=== PATIENT | female | born 1940 | race Caucasian/White ===

== ENCOUNTER 2017-01-06 11:43 | Inpatient (IN) | payer OTHER ==
[~2017-01-06] VITALS: Ht 162.6 cm; Wt 74.8 kg
[2017-01-06] MEDS ORDERED: IPRATROPIUM BROM 0.5 MG/2.5ML INH SOL ONE (12:03)
[2017-01-06] MEDS ORDERED: ALBUTEROL SULF 2.5 MG/0.5ML(0.5%) NEB SOLN ONE (12:03)
[2017-01-06] MEDS ORDERED: EPINEPHrine HCL 0.5 ML NEB ONE (12:03)
[2017-01-06] MEDS ORDERED: SODIUM CHLORIDE 0.9% 1,000 ML IV ONE (12:05)
[2017-01-06] MEDS ORDERED: EPINEPHrine HCL 0.5 ML NEB NEB ONE (12:15)
[2017-01-06] MEDS ORDERED: methylPREDNISolone SOD SUCC 125 MG/2 ML VL IV ONE (12:15)
[2017-01-06 13:26] LABS: Basophils # (auto) 0 uL; Basophils % (auto) 0.4 % (0.0-2.0); Eosinophils # (auto) 0.1 uL; Eosinophils % (auto) 0.9 % (0.0-7.0); Hematocrit 38.8 % (36.0-46.0); Hemoglobin 12.9 g/dL (12.2-16.2); Lymphocytes # (auto) 2.2 uL; Lymphocytes % (auto) 22.3 % (10.0-50.0); Mean Corpuscular Hemoglobin 30.2 pg (28.0-32.0); Mean Corpuscular Hgb Conc. 33.2 g/dL (32.0-36.0); Mean Corpuscular Volume 90.8 fL (80.0-100.0); Mean Platelet Volume 9.7 fL (7.4-10.4); Monocytes # (auto) 0.6 uL; Monocytes % (auto) 6.2 % (0.0-12.0); Neutrophils # (auto) 6.8 uL; Neutrophils % (auto) 70.2 % (37.0-80.0); Platelet Count (auto) 285 10^3/uL (140-450); White Blood Cell 9.8 10^3/uL (4.4-10.8)
[2017-01-06 13:51] LABS: Albumin 3.5 g/dL (3.4-5.0); Alkaline Phosphatase 101 U/L (45-117); Anion Gap 11 (5-15); Aspartate Aminotransferase 18 U/L (15-37); BUN/Creatinine Ratio 17.9; Bilirubin, Total 0.7 mg/dL (0.2-1.0); Blood Urea Nitrogen 19 mg/dL (7-18); Calcium 7.9 mg/dL (8.5-10.1); Carbon Dioxide 26 mmol/L (21-32); Chloride 103 mmol/L (98-107); GFR African American 65 mL/min; GFR Non-African American 53 mL/min; Glucose 152 mg/dL (74-106); Magnesium 1.8 mg/dL (1.6-2.6); Potassium 3.9 mmol/L (3.5-5.1); Sodium 140 mmol/L (136-145); Total Protein 6.4 g/dL (6.4-8.2)
[2017-01-06] MEDS ORDERED: ALBUTEROL SULF 2.5 MG/0.5ML(0.5%) NEB SOLN NEB ONE (14:00)
[2017-01-06] MEDS ORDERED: IPRATROPIUM BROM 0.5 MG/2.5ML INH SOL NEB ONE (14:00)
[2017-01-06] MEDS ORDERED: HYDROcodone-ACET 5/325MG TAB PO PRN (16:00)
[2017-01-06] MEDS ORDERED: PROMETHAZINE HCL 25 MG/ML 1ML IV PRN (16:00)
[2017-01-06] MEDS ORDERED: ACETAMINOPHEN 500 MG TAB PO PRN (16:00)
[2017-01-06] MEDS ORDERED: NITROGLYCERIN 0.4 MG SL TAB SL PRN (16:00)
[2017-01-06] MEDS ORDERED: LORazepam 0.5 MG TAB PO PRN (16:00)
[2017-01-06] MEDS ORDERED: TEMAZEPAM 15 MG CAP PO PRN (16:00)
[2017-01-06] MEDS ORDERED: LACTULOSE 20Gm/30ML SOLN PO PRN (16:00)
[2017-01-06] MEDS ORDERED: ALBUTEROL SULF 2.5 MG/0.5ML(0.5%) NEB SOLN NEB PRN (16:00)
[2017-01-06] MEDS ORDERED: MORPHINE SULF INJ 2 MG/ML SYRINGE 1ML IV PRN ×2 (16:00)
[2017-01-06] MEDS: SODIUM CHLORIDE 0.9% 1,000 ML IV SCH (16:36)
[2017-01-06] MEDS: ALBUTEROL SULF 2.5 MG/0.5ML(0.5%) NEB SOLN NEB SCH (18:00)
[2017-01-06] MEDS ORDERED: IOHEXOL 350 MG/ML 100ML IJ ONE (18:00)
[2017-01-06] MEDS ORDERED: LOSA25TA8 PO (20:47)
[2017-01-06] MEDS ORDERED: CLOP75TA28 PO (20:47)
[2017-01-06] MEDS ORDERED: PAR20T PO (20:47)
[2017-01-06] MEDS ORDERED: METO25TA5 PO (20:47)
[2017-01-06] MEDS ORDERED: TRIA37.561 PO (20:47)
[2017-01-06] MEDS ORDERED: ZOLP10TA PO (20:47)
[2017-01-06] MEDS ORDERED: ATOR20TA PO (20:47)
[2017-01-06] MEDS ORDERED: ALPR0.5T7 PO (21:15)
[2017-01-06] MEDS ORDERED: ALBUAER3 IN (21:15)
[2017-01-06] MEDS ORDERED: PANT40T PO (21:15)
[2017-01-06] MEDS ORDERED: TOLT4CAP12 PO (21:15)
[2017-01-06] MEDS ORDERED: BUPR1TAB11 PO (21:15)
[2017-01-06] MEDS ORDERED: TRIA50TA2 PO (21:15)
[2017-01-06] MEDS ORDERED: NIF10C PO (21:15)
[2017-01-06] MEDS: METOPROLOL TARTRATE 25 MG TAB PO SCH (21:55)
[2017-01-06 22:00] VITALS: BP 98/50
[2017-01-06 22:41] VITALS: BP 98/50
[2017-01-07] MEDS: SODIUM CHLORIDE 0.9% 1,000 ML IV SCH (04:17)
[2017-01-07 04:48] VITALS: BP 98/50
[2017-01-07 05:00] VITALS: BP 110/80
[2017-01-07] MEDS: ALBUTEROL SULF 2.5 MG/0.5ML(0.5%) NEB SOLN NEB SCH ×3 (06:08→11:26)
[2017-01-07 06:33] LABS: Basophils # (auto) 0 uL; Basophils % (auto) 0.1 % (0.0-2.0); Eosinophils # (auto) 0 uL; Eosinophils % (auto) 0.1 % (0.0-7.0); Hematocrit 37.4 % (36.0-46.0); Hemoglobin 12.6 g/dL (12.2-16.2); Lymphocytes % (auto) 8.6 % (10.0-50.0); Mean Corpuscular Hemoglobin 30.7 pg (28.0-32.0); Mean Corpuscular Hgb Conc. 33.6 g/dL (32.0-36.0); Mean Corpuscular Volume 91.5 fL (80.0-100.0); Mean Platelet Volume 9.5 fL (7.4-10.4); Monocytes # (auto) 0.5 uL; Monocytes % (auto) 3.9 % (0.0-12.0); Neutrophils # (auto) 10.5 uL; Neutrophils % (auto) 87.3 % (37.0-80.0); Platelet Count (auto) 263 10^3/uL (140-450); Red Cell Distribution Width 14.9 % (11.6-16.0)
[2017-01-07 07:43] LABS: Albumin 3.2 g/dL (3.4-5.0); Alkaline Phosphatase 95 U/L (45-117); Anion Gap 10 (5-15); Aspartate Aminotransferase 12 U/L (15-37); BUN/Creatinine Ratio 21.8; Bilirubin, Total 0.7 mg/dL (0.2-1.0); Blood Urea Nitrogen 19 mg/dL (7-18); Calcium 8.7 mg/dL (8.5-10.1); Carbon Dioxide 27 mmol/L (21-32); Chloride 105 mmol/L (98-107); Cholesterol 142 mg/dL (< 200); GFR African American 81 mL/min; GFR Non-African American 67 mL/min; Glucose 121 mg/dL (74-106); HDL Cholesterol 46 mg/dL (40-59); LDL Cholesterol 94 mg/dL (< 100); Potassium 3.6 mmol/L (3.5-5.1); Sodium 142 mmol/L (136-145); Total Protein 6.3 g/dL (6.4-8.2); Triglycerides 101 mg/dL (< 150)
[2017-01-07 08:21] VITALS: BP 119/60
[2017-01-07] MEDS ORDERED: ENOXAPARIN SOD 40 MG/0.4 ML SYRINGE SC SCH (10:00)
[2017-01-07] MEDS: METOPROLOL TARTRATE 25 MG TAB PO SCH (10:33)
[2017-01-07 11:51] LABS: Urine Bilirubin Negative (Negative); Urine Blood Negative /uL (Negative); Urine Color Yellow (Yellow); Urine Glucose Normal (Normal); Urine Ketone Negative (Negative); Urine Nitrite Negative (Negative); Urine RBC 2 /hpf (0 - 4); Urine Squamous Epithelial Cell FEW /hpf (<5); Urine Urobilinogen Normal (Negative); Urine pH 5.5 (5.0-8.0)
[2017-01-07 12:26] VITALS: BP 119/64
[2017-01-07 13:47] VITALS: BP 119/64
== END 2017-01-07 15:30 | disposition home or self-care (01) | DRG 842 ==
LOC: ER 11:43 → EDBD 11:43 → TELE 11:44 → TELE-CENTR 18:40
PROVIDERS: ADMIT Internal Medicine; ATTEND Internal Medicine Geriatric Medicine
DX: C85.92 Non-Hodgkin lymphoma, unspecified, intrathoracic lymph nodes (principal); I10 Essential (primary) hypertension; R06.1 Stridor; R06.00 Dyspnea, unspecified; F41.9 Anxiety disorder, unspecified; Z53.29 Procedure and treatment not carried out because of patient's decision for other reasons; R73.9 Hyperglycemia, unspecified; Z87.891 Personal history of nicotine dependence; Z86.73 Personal history of transient ischemic attack (TIA), and cerebral infarction without residual deficits; Z92.21 Personal history of antineoplastic chemotherapy; Z88.6 Allergy status to analgesic agent; Z88.0 Allergy status to penicillin; Z79.899 Other long term (current) drug therapy; Z90.710 Acquired absence of both cervix and uterus; Z90.49 Acquired absence of other specified parts of digestive tract
CPT/HCPCS: 36415; 70490; 71010; 71275; 80053; 80061; 81001; 82550; 83735; 84484; 85025; 85379; 86141; 94640; 94761; 96361; 96374